=== PATIENT | female | born 1950 | race Caucasian/White ===

== ENCOUNTER → 2017-02-24 | Outpatient (CLI) | payer OTHER | LOC: CIMAGING 14:14 | PROVIDERS: ATTEND Internal Medicine | DX: Z12.31 Encounter for screening mammogram for malignant neoplasm of breast (principal); Z80.3 Family history of malignant neoplasm of breast | CPT/HCPCS: G0202 ==

== ENCOUNTER → 2018-03-12 | Outpatient (CLI) | payer OTHER | LOC: CIMAGING 12:21 | PROVIDERS: ATTEND Family Medicine | DX: Z12.31 Encounter for screening mammogram for malignant neoplasm of breast (principal); Z80.3 Family history of malignant neoplasm of breast; S62.524A Nondisplaced fracture of distal phalanx of right thumb, initial encounter for closed fracture | CPT/HCPCS: 73140-PO ==

== ENCOUNTER → 2018-09-18 | Outpatient (CLI) | payer OTHER | LOC: FIMAGING 09:32 ==